=== PATIENT | male | born 1985 | race Caucasian/White ===

== ENCOUNTER 2025-06-21 22:16 | Emergency (ER) | payer OTHER ==
[2025-06-22] MEDS ORDERED: Famotidine/PF 20 mg/2ml Vial ONE (01:23)
[2025-06-22] MEDS ORDERED: Dexamethasone 10 MG/ML VIAL ONE (01:23)
[2025-06-22] MEDS ORDERED: diphenhydrAMINE 50 MG/ML VIAL ONE (01:23)
[2025-06-22] MEDS ORDERED: Ketorolac Tromethamine 30 MG (1 mL) VIAL ONE (01:24)
[2025-06-22] MEDS ORDERED: Acetaminophen 500 MG TAB ONE (03:04)
== END 2025-06-22 04:05 | disposition home or self-care (01) ==
LOC: ERS 22:16
DX: R51.9 Headache, unspecified (principal); R21 Rash and other nonspecific skin eruption; F17.220 Nicotine dependence, chewing tobacco, uncomplicated
CPT/HCPCS: 96374; 96375; J1100; J1200; J1885